=== PATIENT | male | born 1965 | race Caucasian/White ===

== ENCOUNTER 2020-11-28 00:56 | Observation (INO) | payer BC ==
[~2020-11-28] VITALS: Ht 182.9 cm; Wt 102.0 kg
[~2020-11-28 00:56] MED LIST: ASPI81CH PO; CHOL10002 PO; FISH1000 PO; PARO12.5 PO; ROSU10TA; SIMV40 PO
[2020-11-28] MEDS ORDERED: OMEP20ER PO (01:14)
[2020-11-28] MEDS ORDERED: METOPROLOL TART25 MG PO (01:15)
[2020-11-28 01:33] LABS: BASOPHILS ABSOLUTE AUTO 0.05 K/mm3 (0.00-0.23); BASOPHILS PERCENT AUTO 1 % (0-2); EOSINOPHILS ABSOLUTE AUTO 0.15 K/mm3 (0.00-0.68); EOSINOPHILS PERCENT AUTO 2 % (0-6); Hematocrit 42.9 % (37.0-53.0); IMMATURE GRAN ABSOLUTE AUTO 0.03 K/mm3 (0.00-0.10); IMMATURE GRAN PERCENT AUTO 0 % (0-1); LYMPHOCYTES ABSOLUTE AUTO 3.89 K/mm3 (0.84-5.20); LYMPHOCYTES PERCENT AUTO 44 % (21-46); MONOCYTES ABSOLUTE AUTO 0.59 K/mm3 (0.16-1.47); MONOCYTES PERCENT AUTO 7 % (4-13); Mean Corpuscular HGB 28.6 pg (26.0-34.0); Mean Corpuscular Volume 82 fL (80-100); Mean Platelet Volume 10.9 fL (9.1-12.4); NEUTROPHILS ABSOLUTE AUTO 4.21 K/mm3 (1.96-9.15); NEUTROPHILS PERCENT AUTO 47 % (41-73); Platelet Count 210 K/mm3 (150-400); RDW Coefficient Variation 12.3 % (11.7-14.2); RDW Standard Deviation 37.1 fL (35.1-46.3); Red Blood Cell Count 5.24 M/mm3 (4.30-5.90); White Blood Cell Count 8.92 K/mm3 (4.00-11.30)
[2020-11-28 01:48] LABS: International Normalized Ratio 0.96; Prothrombin Time Results 10.4 Sec (9.7-11.5)
[2020-11-28 01:54] LABS: Alanine Aminotransfer (ALT/SGP 66 U/L (12-78); Albumin, Blood 3.6 g/dL (3.4-5.0); Alk Phos 83 U/L (50-136); Anion Gap 5 mmol/L (6-16); Aspartate Aminotrans (AST/SGOT 43 U/L (12-37); Bilirubin, Total 0.4 mg/dL (0.1-1.0); Blood Urea Nitrogen 11 mg/dL (8-24); Bun/Creatinine Ratio 7.7 (12.0-20.0); CO2, Blood 26 mmol/L (21-32); Calcium, Blood 8.4 mg/dL (8.5-10.1); Chloride, Blood 107 mmol/L (98-108); Creatinine, Blood 1.43 mg/dL (0.60-1.20); Globulin, Blood 3.5 g/dL (2.2-4.0); Glomerular Filtration Rate 54 (60-); Glucose, Blood 123 mg/dL (70-99); Magnesium, Blood 2.3 mg/dL (1.6-2.4); Potassium, Blood 3.5 mmol/L (3.5-5.5); Sodium, Blood 138 mmol/L (136-145); Total Protein, Blood 7.1 g/dL (6.4-8.2); Troponin I <0.015 ng/mL (0.000-0.040)
--- NOTE | 2020-11-28 08:30 | NUR ---
INITIAL ASSESSMENT PATIENT ARRIVED TO ICU FROM ER AROUND 0800. PATIENT ABLE TO AMBULATE TO ICU BED FROM ER [facility] AND WITHOUT DIFFICULTY. PATIENT STATES HE DOES FEEL A LITTLE WEAK. PATIENT AFEBRILE. PATIENT ALERT AND ORIENTED X 4. PATIENT DENIES ANY PAIN, INCLUDING CHEST PAIN/ PRESSURE. PATIENT SATTING 90% AND GREATER ON RA. LUNGS CLEAR THROUGHOUT. PATIENT IN A. FIB, HR 60S TO 80S. SBP 90S TO LOW 100S. GI WNL. WNL. URINAL AT BEDSIDE. SKIN APPEARS WNL. LR INFUSING AT 125 MLS/ HOUR. PATIENT ORIENTED TO UNIT, ROOM AND CALL LIGHT. BED LOW, CALL LIGHT IN REACH. WILL CONTINUE TO MONITOR PATIENT FREQUENTLY THROUGHOUT SHIFT.
--- NOTE | 2020-11-28 12:00 | NUR ---
PATIENT CONVERTED ON OWN TO SR AT 1155. HR 50S TO 80S. SBP LOW 100S TO 120S. NO OTHER ACUTE CHANGES TO NOTE ON AT THIS TIME. WILL CONTINUE TO MONITOR.
--- NOTE | 2020-11-28 18:03 | NUR ---
SHIFT SUMMARY PATIENT REMAINED A AND O X 4, AFEBRILE. PATIENT HAD NO COMPLAINTS OF PAIN, CP, CHEST PRESSURE. PATIENT NOW INDEPENDENT IN ROOM. PATIENT REMAINED SATTING 90% AND GREATER ON RA. PATIENT IN A. FIB UPON ARRIVAL FROM ER; HR REMAINED CONTROLLED WITH ADEQUATE BP. SCHEDULED PO METOPROLOL HELD THIS AM FOR SBP UNDER 100. PATIENT CONVERTED TO SR ON OWN AT 1155. HR HAS RANGED FROM 50S TO 80S. SBP 80S TO 120S. PULSES REMAIN STRONG. NO BM THIS SHIFT. PATIENT HAS ADEQUATE APPETITE. HAS REMAINED WNL. NO CHANGE TO SKIN. PATIENT REPOSITIONING SELF IN BED. LR REMAINS INFUSING AT 125 MLS/ HOUR. DILTIAZEM DRIP DC'D THIS SHIFT AND PATIENT CHANGED TO MEDICAL STATUS WITH TELEMETRY. ECHO PERFORMED THIS SHIFT. IN TO VISIT TODAY. PATIENT WILL BE TRANSFERRING SHORTLY TO MEDICAL FLOOR, ROOM 362. AWARE.
--- NOTE | 2020-11-28 18:23 | NUR ---
PATIENT SUCCESSFULLY TRANSFERRED TO MEDICAL FLOOR, ROOM 362. ALL BELONGINGS TAKEN BY WHO WAS AT PATIENT SIDE.
--- NOTE | 2020-11-29 06:41 | NUR ---
PATIENT SLEPT WELL WITH NO COMPLAINTS OF CHEST DISCOMFORT, CP, DIZZINESS OR PALPATATIONS. TELEMETRY OVERNIGHT CONSISTANTLY SINUS SAMANTHA IN 50'S WITH RARE RATES INTO 60'S. UP INDEPENDENTLY IN ROOM TO CHAIR AND BATHROOM. NO COMPLAINTS
[2020-11-29 08:52] LABS: Anion Gap 2 mmol/L (6-16); Blood Urea Nitrogen 11 mg/dL (8-24); Bun/Creatinine Ratio 10.9 (12.0-20.0); CO2, Blood 29 mmol/L (21-32); Calcium, Blood 8.1 mg/dL (8.5-10.1); Chloride, Blood 107 mmol/L (98-108); Creatinine, Blood 1.01 mg/dL (0.60-1.20); Glomerular Filtration Rate >60 (60-); Glucose, Blood 99 mg/dL (70-99); Potassium, Blood 3.6 mmol/L (3.5-5.5); Sodium, Blood 138 mmol/L (136-145)
--- NOTE | 2020-11-29 10:55 | NUR ---
STUDENT ASSESSMENT REVIEW I HAVE REVIEWED THE STUDENT'S ASSESSMENT, CONDUCTED MY OWN ASSESSMENT, AND I AGREE WITH THE STUDENT'S FINDINGS.
--- NOTE | 2020-11-29 13:00 | NUR ---
Dishcarge Summary, The patient was A/OX4 tp person, place, time and event thoughout shift. He was independent in room. The patient was provided verbal and writen discharge instructions. He did not have any questions or concerns about the discharge instructions. The patient did not have any acute change during shift. The patient's picked him up and he was able to walk without assistence to his POV.
== END 2020-11-29 12:54 | disposition home or self-care (01) ==
LOC: ER 00:56 → PCU 00:57 → ERHOLD 00:57 → ICUW 00:57 → ER 00:57 → ICUW 08:17 → MEDS 18:28 → ENPENDDIS 11-29 12:11 → MEDS 11-29 12:54
PROVIDERS: Emergency Medicine; Internal Medicine; ADMIT Internal Medicine
DX: I48.91 Unspecified atrial fibrillation (principal); E78.5 Hyperlipidemia, unspecified; N17.9 Acute kidney failure, unspecified; F17.220 Nicotine dependence, chewing tobacco, uncomplicated
CPT/HCPCS: 36415; 71045; 80048; 80053; 83605; 83735; 83880; 84443; 84484; 85025; 85610; 93005; 93010; 93306; J1160; J1650; J7120